=== PATIENT | male | born 1990 | race Caucasian/White ===

== ENCOUNTER 2017-07-18 15:25 | Emergency (ER) | payer SELFPAY ==
[~2017-07-18] VITALS: Ht 182.9 cm; Wt 122.7 kg
[~2017-07-18 15:25] MED LIST: AMOX875T PO; CORT1SOL LEFT EAR
[2017-07-18 15:26] VITALS: BP 168/105; PULSE 97; RESP 17; TEMP 98.5; O2SAT 96
--- NOTE | 2017-07-18 16:21 | RADRPT ---
EXAM DATE/TIME: 07/18/2017 16:02 [place] COMPARISON: No previous studies available for comparison. INDICATIONS : Chest pain, shortness of breath, fever, coughing. MEDICAL HISTORY : Smoker. SURGICAL HISTORY : None. ENCOUNTER: Initial ACUITY: 4 - 6 days PAIN SCORE: 5/10 LOCATION: Left upper chest FINDINGS: PA and lateral views of the chest demonstrate the lungs to be symmetrically aerated without evidence of mass, infiltrate or effusion. The cardiomediastinal contours are unremarkable. Osseous structure s are intact. CONCLUSION: No acute disease. Elvin Tomlinson MD on July 18, 2017 at 16:18 Board Certified Radiologist. This report was verified electronically.
[2017-07-18 17:37] LABS: AUTOMATED NEUTROPHIL # 6.8 TH/MM3 (1.8-7.7); BASOPHIL # 0.1 TH/MM3 (0-0.2); BASOPHIL % 0.8 % (0.0-2.0); EOSINOPHIL # 1.2 TH/MM3 (0-0.4); EOSINOPHIL % 9.5 % (0.0-4.0); HEMATOCRIT 46.4 % (39.0-51.0); HEMOGLOBIN 16.4 GM/DL (13.0-17.0); LYMPH % 27.9 % (9.0-44.0); LYMPHOCYTE # 3.5 TH/MM3 (1.0-4.8); MEAN CELL VOLUME 89.4 FL (80.0-100.0); MEAN CORPUSCULAR HEMOGLOBIN 31.6 PG (27.0-34.0); MEAN CORPUSCULAR HGB CONC 35.4 % (32.0-36.0); MONO % 7.3 % (0.0-8.0); MONOCYTE # 0.9 TH/MM3 (0-0.9); NEUT % 54.5 % (16.0-70.0); PLATELET COUNT 282 TH/MM3 (150-450); RED BLOOD COUNT 5.19 MIL/MM3 (4.50-5.90); RED CELL DISTRIBUTION WIDTH 12.6 % (11.6-17.2); WHITE BLOOD COUNT 12.4 TH/MM3 (4.0-11.0)
[2017-07-18 17:43] LABS: INTERNATIONAL NORMALIZED RATIO 1.1 RATIO; PROTHROMBIN TIME - PATIENT 10.7 SEC (9.8-11.6)
[2017-07-18 17:58] LABS: BICARBONATE 29.6 MEQ/L (21.0-32.0); BLOOD UREA NITROGEN 13 MG/DL (7-18); CALCIUM 9.2 MG/DL (8.5-10.1); CHLORIDE 104 MEQ/L (98-107); CREATININE 0.99 MG/DL (0.60-1.30); GLOMERULAR FILTRATION RATE 90 ML/MIN (>89); GLUCOSE,RANDOM 91 MG/DL (74-106); MAGNESIUM 2.3 MG/DL (1.5-2.5); SODIUM (NA) 140 MEQ/L (136-145)
[2017-07-18 18:01] LABS: TROPONIN I LESS THAN 0.02 NG/ML (0.02-0.05)
[2017-07-18] MEDS ORDERED: methylPREDNISolone SOD SUCC 125 MG/2 ML VIAL IV PUSH ONE (19:15)
[2017-07-18 19:17] VITALS: BP 155/88; PULSE 96; RESP 18; O2SAT 95
--- NOTE | 2017-07-18 19:24 | PD ---
HPI Chief Complaint: Chest Pain Time Seen by Provider: 19:05 Travel History International Travel<30 days: No Contact w/Intl Traveler<30days: No Traveled to known affect area: No History of Present Illness HPI 27-year-old otherwise healthy male presents to the emergency room for evaluation of midsternal chest pain and shortness of breath that started 5 days ago. States symptoms peaked yesterday while at work. States all weekend, he had dyspnea on exertion; he could not keep up with his family while they were walking at the park. Pain is midsternal and worse with deep inspiration and coughing. He developed a cough 2 days ago. Cough is productive. He has been using his [employer] nebulizer machine with significant relief in symptoms. Patient also developed fever 2 days ago states his temperature prior to arrival is 99.7. He denies any history of asthma, lung problems, or cardiac problems. He used to smoke one pack per week but has not smoked since June 19. He denies recent immobilization, hemoptysis, steroid use, history of PE or DVT, recent surgery or trauma, or leg swelling. PFSH Past Medical History Medical History: Denies Significant Hx Tetanus Vaccination: Unknown Influenza Vaccination: No Past Surgical History Surgical History: No Previous Surgery Social History Alcohol Use: No Tobacco Use: No Substance Use: No Allergies-Medications (Allergen,Severity, Reaction): Coded Allergies: No Known Allergies (Unverified Adverse Reaction, Unknown, 07/18/17) Reported Meds & Prescriptions Reported Meds & Active Scripts Active Azithromycin 250 Mg Tab 250 Mg PO DIRECTED Take 2 tabs (500 mg) on day 1 then 1 tab daily x 4 days. Ventolin Hfa 18 GM Inh (Albuterol Sulfate) 90 Mcg/Act Aer 2 Puff INH Q6H PRN Prednisone 20 Mg Tab 40 Mg PO DAILY Take 40 mg (2 tablets) daily for 5 days Tessalon Perles (Benzonatate) 100 Mg Cap 100 Mg PO TID PRN Review of Systems Except as stated in HPI: all other systems reviewed are Neg Physical Exam Narrative GENERAL: Well-nourished, well-developed male in no acute distress. Afebrile. Ambulatory. SKIN: No rashes, ecchymoses or lesions. Cool and dry. HEAD: Normocephalic. EYES: No scleral icterus. No injection or drainage. NECK: Supple, trachea midline. No JVD or lymphadenopathy. CARDIOVASCULAR: Regular rate and rhythm without murmurs, gallops, or rubs. RESPIRATORY: No accessory muscle use. Bilateral inspiratory and expiratory wheezes and coarse lung sounds. MUSCULOSKELETAL: No cyanosis, or edema. Data Data Last Documented VS Vital Signs Date Time Temp Pulse Resp B/P (MAP) Pulse Ox O2 Delivery O2 Flow Rate FiO2 07/18/17 19:17 96 18 155/88 (110) 95 Room Air 07/18/17 15:26 98.5 Orders Orders Electrocardiogram (07/18/17 15:51) Basic Metabolic Panel (Bmp) (07/18/17 15:51) Ckmb (Isoenzyme) Profile (07/18/17 15:51) Complete Blood Count With Diff (07/18/17 15:51) Magnesium (Mg) (07/18/17 15:51) Prothrombin Time / Inr (Pt) (07/18/17 15:51) Act Partial Throm Time (Ptt) (07/18/17 15:51) Troponin I (07/18/17 15:51) Chest, Pa & Lat (07/18/17 15:51) CKMB (07/18/17 17:07) CKMB% (07/18/17 17:07) Influenzae A/B Antigen (07/18/17 18:23) D-Dimer (07/18/17 19:11) Methylprednisolone So Succ Inj (Solumedr (07/18/17 19:15) Albuterol-Ipratropium Neb (Duoneb Neb) (07/18/17 19:15) Ed Discharge Order (07/18/17 20:35) Labs Laboratory Tests Test 07/18/17 17:07 07/18/17 19:35 White Blood Count 12.4 TH/MM3 Red Blood Count 5.19 MIL/MM3 Hemoglobin 16.4 GM/DL Hematocrit 46.4 % Mean Corpuscular Volume 89.4 FL Mean Corpuscular Hemoglobin 31.6 PG Mean Corpuscular Hemoglobin Concent 35.4 % Red Cell Distribution Width 12.6 % Platelet Count 282 TH/MM3 Mean Platelet Volume 8.0 FL Neutrophils (%) (Auto) 54.5 % Lymphocytes (%) (Auto) 27.9 % Monocytes (%) (Auto) 7.3 % Eosinophils (%) (Auto) 9.5 % Basophils (%) (Auto) 0.8 % Neutrophils # (Auto) 6.8 TH/MM3 Lymphocytes # (Auto) 3.5 TH/MM3 Monocytes # (Auto) 0.9 TH/MM3 Eosinophils # (Auto) 1.2 TH/MM3 Basophils # (Auto) 0.1 TH/MM3 CBC Comment DIFF FINAL Differential Comment Prothrombin Time 10.7 SEC Prothromb Time International Ratio 1.1 RATIO Activated Partial Thromboplast Time 29.4 SEC Blood Urea Nitrogen 13 MG/DL Creatinine 0.99 MG/DL Random Glucose 91 MG/DL Calcium Level 9.2 MG/DL Magnesium Level 2.3 MG/DL Sodium Level 140 MEQ/L Potassium Level 3.4 MEQ/L Chloride Level 104 MEQ/L Carbon Dioxide Level 29.6 MEQ/L Anion Gap 6 MEQ/L Estimat Glomerular Filtration Rate 90 ML/MIN Total Creatine Kinase 322 U/L Creatine Kinase MB 1.7 NG/ML Creatine Kinase MB % 0.5 % Troponin I LESS THAN 0.02 NG/ML D-Dimer Quantitative (PE/DVT) 0.29 MG/L [facility] Medical Decision Making Medical Screen Exam Complete: Yes Emergency Medical Condition: Yes Medical Record Reviewed: Yes Differential Diagnosis Acute bronchitis, asthma exacerbation, pneumonia, influenza, COPD Narrative Course 27-year-old otherwise healthy male presents to the emergency room for evaluation of midsternal, nonradiating chest pain and shortness of breath for the past several days. He has associated mildly productive cough and fever. Physical exam is reassuring. Patient resting comfortably in bed. He has coarse bilateral lung sounds with inspiratory and expiratory wheezes. EKG shows sinus rhythm with a rate of 77 beats per minute. No ST changes. CBC shows mild leukocytosis with no left shift. CMP is essentially unremarkable. Troponin is less than 0.02. D-dimer is 0.29. Chest x-ray is negative. Influenza is negative. Patient given 125 mg IV Solu-Medrol and 3 DuoNebs which she states did not feel he improves his symptoms. States "I can actually breathe now." Post DuoNeb lung exam is mildly improved. Patient for outpatient follow-up. We discharged with prescriptions for prednisone, Tessalon Perles, albuterol, and azithromycin. Told to follow-up with a primary care physician or return for worsening symptoms. He understands and agrees to plan. Diagnosis Primary Impression: Acute bronchitis Qualified Codes: J20.9 - Acute bronchitis, unspecified Referrals: Primary Care Physician Additional Instructions: Rest and drink plenty of fluids. Inhaler as directed, as needed for shortness of breath and wheezing. Tessalon Perles as directed, as needed for cough. Azithromycin and Prednisone as directed, until gone. Follow-up with a primary care physician. Return to the emergency room for worsening symptoms. Scripts Azithromycin (Azithromycin) 250 Mg Tab 250 MG PO DIRECTED for Infection, #6 TAB 0 Refills Take 2 tabs (500 mg) on day 1 then 1 tab daily x 4 days. Prov: Rosa M Booth MD 07/18/17 Albuterol 18 GM Inh (Ventolin Hfa 18 GM Inh) 90 Mcg/Act Aer 2 PUFF INH Q6H Y for SHORTNESS OF BREATH, #1 INHALER 0 Refills Prov: Rosa M Booth MD 07/18/17 Prednisone (Prednisone) 20 Mg Tab 40 MG PO DAILY, #8 TAB 0 Refills Take 40 mg (2 tablets) daily for 5 days Prov: Rosa M Booth MD 07/18/17 Benzonatate (Tessalon Perles) 100 Mg Cap 100 MG PO TID Y for COUGH, #15 CAP 0 Refills Prov: Rosa M Booth MD 07/18/17 Disposition: 01 DISCHARGE HOME Condition: Stable Ele Vincent Jul 18, 2017 19:24
[2017-07-18] MEDS ORDERED: PRED20 PO (19:28)
[2017-07-18] MEDS ORDERED: BENZ100 PO (19:28)
[2017-07-18] MEDS ORDERED: VENTAER INH (19:28)
[2017-07-18] MEDS: RESP: ALBUTEROL 2.5 MG/IPRATROPIUM 0.5 MG NEB (SCH) INH (19:48)
[2017-07-18] MEDS ORDERED: AZIT250T3 PO (20:13)
--- NOTE | 2017-07-19 09:31 | EKG ---
Date Performed: 07/18/2017 Time Performed: 16:59:56 PTAGE: 27 years EKG: Sinus rhythm WITH SINUS ARRHYTHMIA NORMAL ECG NO PREVIOUS TRACING DOCTOR: Dominik Starks Interpretating Date/Time 07/19/2017 09:28:53
== END 2017-07-18 21:49 | disposition home or self-care (01) ==
LOC: NEPC 15:25
DX: J20.9 Acute bronchitis, unspecified (principal); Z87.891 Personal history of nicotine dependence
CPT/HCPCS: 71046; 80048; 82550; 82552; 83735; 84484; 85025; 85379; 85610; 85730; 87804; 93005; 94640; 94664; 96374; 99285; J2930